=== PATIENT | male | born 1930 | race Caucasian/White ===

== ENCOUNTER 2016-10-14 19:00 | Emergency (ER) | payer MEDICARE, OTHER ==
[~2016-10-14 19:00] MED LIST: ARICEPT10 MG PO; COLESTID1 GM PO; COUMADIN3 MG PO; FLOMAX DPS0.4 MG PO; LANOXIN DPS0.125 MG PO; LEVAQUIN DPS500 MG PO; MAG-OX400 MG PO; SURFAK DPS240 MG PO; TENORMIN DPS50 MG PO; TYLENOL DPS325 MG PO
== END 2016-10-14 22:00 | disposition home or self-care (01) ==
DX: J18.9 Pneumonia, unspecified organism (principal); I50.9 Heart failure, unspecified; E78.00 Pure hypercholesterolemia, unspecified; N18.9 Chronic kidney disease, unspecified